=== PATIENT | male | born 1970 | race Caucasian/White ===

== ENCOUNTER 2019-09-01 21:20 | Observation (INO) ==
--- NOTE | 2019-09-01 22:26 | DR.ALLERGY ---
HPI Time Seen Time Seen by Provider: 09/01/19 22:21 PCP Primary Care Physician: JANNIE JUAREZ HPI Comment HPI Comment: Pt. with vomiting, flushing, fast heart rate and elevated BP after eating Complaint/Symptoms Chief Complaint Doctors Comments: Pt. has had multiple episodes over the last three months. Was seen in [place] last night. Chief Complaint:: PATIENT C/O SOB; FEELING LIKE THROAT IS CLOSING UP; FLUSHING AFTER EATING (SEAFOOD?); PATIENT WAS IN ER IN [place], [place] ([facility]) LAST NIGHT AFTER EATING OYSTER STEW WITH C/O HIGH BP, VOMITING, FLUSH. [facility] DAY Source History Provided: Patient Mode of Arrival Mode of Arrival: Ambulatory Timing Onset of Chief Complaint: 08/31/19 PMH PMH Past Medical History: No Past Surgical History: Yes Past Surgical History Comment: HEMORRHOID SURGERY LAST WEEK Family History History of Family Medical Conditions: No Social History Does patient currently use any type of tobacco product: Yes (SMOKELESS) Have you used tobacco products in the last 12 months: Yes Type of Tobacco Use: Smokeless Alcohol Use: None Do you use any recreational Drugs:: No Lives Where: Home infectious screening In the last 2 months have you had wt loss of >10#?: NO Have you had fever, night sweats or hemotysis?: No Have you traveled outside the country in the last 6 months?: No Isolation: Standard PE Vitals Vital Signs: Temp Pulse Resp BP Pulse Ox 09/01/19 21:22 98.5 F 99 H 20 131/83 97 ROR Labs Reviewed Laboratory Results Reviewed?: Yes Result Diagrams: 09/01/19 22:36 09/01/19 22:36 Laboratory: WBC 13.6 X10^3/uL (3.6-10.0) H 09/01/19 22:36 RBC 4.78 X10^6/uL (4.7-6.0) 09/01/19 22:36 Hgb 15.3 g/dL (13.5-18.0) 09/01/19 22:36 Hct 42.6 % (42.0-54.0) 09/01/19 22:36 MCV 89.1 fL (80.0-100.0) 09/01/19 22:36 MCH 32.0 pg (27.0-34.0) 09/01/19 22:36 MCHC 35.9 g/dL (33.0-35.0) H 09/01/19 22:36 RDW 12.8 % (11.6-16.5) 09/01/19 22:36 Plt Count 320 X10^3/uL (150.0-450.0) 09/01/19 22:36 MPV 7.6 fL (7.4-11.0) 09/01/19 22:36 Neut % (Auto) 78.6 % (42.0-75.0) H 09/01/19 22:36 Lymph % (Auto) 11.7 % (21.0-51.0) L 09/01/19 22:36 Door % (Auto) 9.1 % (0.0-13.0) 09/01/19 22:36 Eos % (Auto) 0.3 % (0.9-2.9) L 09/01/19 22:36 Baso % (Auto) 0.3 % (0.2-1.0) 09/01/19 22:36 Neut # (Auto) 10.7 x10^3/uL (2.2-4.8) H 09/01/19 22:36 Lymph # (Auto) 1.6 X10^3/uL (1.3-2.9) 09/01/19 22:36 Door # (Auto) 1.2 x10^3/uL (0.3-0.8) H 09/01/19 22:36 Eos # (Auto) 0.0 x10^3/uL (0.0-0.2) 09/01/19 22:36 Baso # (Auto) 0.0 X10^3/uL (0.0-0.1) 09/01/19 22:36 Absolute Nucleated RBC 0.1 /100WBC 09/01/19 22:36 Sodium 139 mmol/L (136-145) 09/01/19 22:36 Corrected Sodium 140 mmol/L (136-145) 09/01/19 22:36 Potassium 3.5 mmol/L (3.5-5.1) 09/01/19 22:36 Chloride 101 mmol/L (98-107) 09/01/19 22:36 Carbon Dioxide 29.3 mmol/L (21-32) 09/01/19 22:36 BUN 16 mg/dL (7-18) 09/01/19 22:36 Creatinine 1.12 mg/dL (0.70-1.30) 09/01/19 22:36 Est GFR (MDRD) Af Amer > 60 (>60) 09/01/19 22:36 Est GFR (MDRD) Non-Af > 60 (>60) 09/01/19 22:36 Glucose 125 mg/dL (65-99) H 09/01/19 22:36 Calcium 8.7 mg/dL (8.5-10.1) 09/01/19 22:36 Corrected Calcium TNP 09/01/19 22:36 Total Bilirubin 1.80 mg/dL (0.2-1.0) H 09/01/19 22:36 AST 17 Units/L (15-37) 09/01/19 22:36 ALT 40 Units/L (12-78) 09/01/19 22:36 Alkaline Phosphatase 64 Units/L (46-116) 09/01/19 22:36 Total Protein 7.3 g/dL (6.4-8.2) 09/01/19 22:36 Albumin 3.7 g/dL (3.4-5.0) 09/01/19 22:36 Globulin 3.6 g/dL (2.5-4.5) 09/01/19 22:36 Albumin/Globulin Ratio 1.0 Ratio (1.1-2.1) L 09/01/19 22:36 Lipase 70 Units/L (73-393) L 09/01/19 22:36 Specimen Type Clean catch urine 09/02/19 01:13 Urine Color Yellow (YELLOW) 09/02/19 01:13 Urine Appearance Clear (CLEAR) 09/02/19 01:13 Urine pH 6.0 (5.0 - 8.0) 09/02/19 01:13 Ur Specific [place] 1.015 (1.000-1.030) 09/02/19 01:13 Urine Protein 1+ (NEGATIVE) 09/02/19 01:13 Urine Glucose (UA) 1+ (NEGATIVE) 09/02/19 01:13 Urine Ketones Negative (NEGATIVE) 09/02/19 01:13 Urine Occult Blood 2+ (NEGATIVE) 09/02/19 01:13 Urine Nitrite Negative (NEGATIVE) 09/02/19 01:13 Urine Bilirubin Negative (NEGATIVE) 09/02/19 01:13 Urine Urobilinogen Normal (NORMAL) 09/02/19 01:13 Ur Leukocyte Esterase Negative (NEGATIVE) 09/02/19 01:13 Urine RBC 0-2 /HPF (0-3) 09/02/19 01:13 Urine WBC None seen /HPF (0-5) 09/02/19 01:13 Ur Squamous Epith Cells Negative /HPF (NEGATIVE) 09/02/19 01:13 Urine Bacteria Negative /HPF (NEGATIVE) 09/02/19 01:13 Urine Sperm Rare /HPF (NEGATIVE) 09/02/19 01:13 Ur Culture Indicated? No/not indicated 09/02/19 01:13 Other Results Comments: HISTORY C/O SOB, HIGH BP, VOMITING, FLUSH STUDY ABDOMEN/PELVIS WITH CON COMPARISON None TECHNIQUE Multiple axial images of the abdomen and pelvis were obtained from the lung bases to the pubic symphysis after the administration of IV contrast. Dose r eduction techniques including Automated Exposure Control (AEC) and adjustment of mA and kV were utilized. FINDINGS Visualized lungs are clear. Tiny probable hepatic cyst near the dome. Liver is otherwise unremarkable. Gallbladder, pancreas, spleen, and adrenals are unremarkable. Kidneys enhance symmetrically. Bilateral renal cysts noted. No ureteral calculus or hydronephrosis. Urinary bladder is partially decompressed, though grossly unremarkable. Stomach and small bowel normal in caliber. There is a small to moderate amount of retained stool throughout the colon. No colonic wall thickening or pericolic inflammatory stranding. Appendix is not discretely seen, though no secondary signs of appendicitis are detected. No free fluid or adenopathy. Abdominal aorta is normal in caliber. No acute osseous findings. IMPRESSION No acute process of the abdomen or pelvis. Electronically signed by: Jozef Shaw (Sep 02, 2019 02:40:00) HISTORY C/O SOB, HIGH BP, VOMITING, FLUSH STUDY CHEST W/O CON COMPARISON None available TECHNIQUE Multiple axial images of the chest were obtained from the thoracic inlet to the upper abdomen without the administration of IV contrast. Dose reduction techniques including Automated Exposure Control (AEC) and adjustment of mA and kV were utilized. FINDINGS Lungs are clear. No pleural effusion or pneumothorax. Thoracic aorta is normal in caliber. Heart is not enlarged. No pericardial effusion. Abdomen detailed separately. No acute osseous findings. IMPRESSION Unremarkable CT of the chest. Electronically signed by: Jozef Shaw (Sep 02, 2019 02:35:38) tele monitor with NSR through out the ED stay Opioid Opioid Risk Tool Total: 0 Total Score Risk Category: Low Risk Copyright: [facility] predicting aberrant behaviors Diagnosis Discharge Problem: Facial flushing, Palpitations with regular cardiac rhythm Vomiting Qualifiers: Vomiting type: unspecified Vomiting Intractability: intractable Nausea pre sence: with nausea Qualified Code(s): R11.2 - Nausea with vomiting, unspecified Hypertension Qualifiers: Hypertension type: unspecified Qualified Code(s): I10 - Essential (primary) hy pertension ADDITIONAL NOTES Additional Notes Additional Notes: Patient requesting admission Will reach out to Dr. Harris with request. Dr. Jones accepted
[2019-09-01] MEDS ORDERED: ATIVAN INJ 2 MG VIAL IVP ONE (22:27)
[2019-09-01] MEDS ORDERED: PEPCID 20 MG IV PREMIX* 20 MG/50 ML BAG IV ONE (22:33)
[2019-09-01] MEDS ORDERED: NS 100 ML IV 100 ML IV ONE (22:33)
[2019-09-01] MEDS: PEPCID 20 MG IV PREMIX* 20 MG/50 ML BAG IV PRN (22:49)
[2019-09-01 22:54] LABS: ALANINE AMINOTRANSFERASE 40 Units/L (12-78); ALBUMIN 3.7 g/dL (3.4-5.0); ALKALINE PHOSPHATASE 64 Units/L (46-116); ASPARTATE AMINO TRANSFERASE 17 Units/L (15-37); BLOOD UREA NITROGEN 16 mg/dL (7-18); CALCIUM 8.7 mg/dL (8.5-10.1); CARBON DIOXIDE 29.3 mmol/L (21-32); CHLORIDE 101 mmol/L (98-107); COR NA(FOR HYPERGLY) 140 mmol/L (136-145); CREATININE 1.12 mg/dL (0.70-1.30); LIPASE 70 Units/L (73-393); SODIUM 139 mmol/L (136-145); TOTAL PROTEIN 7.3 g/dL (6.4-8.2); eGFR NON BLACK RACES > 60 (>60)
[2019-09-01 22:56] LABS: BASOPHILS % (AUTO) 0.3 % (0.2-1.0); EOSINOPHILS % (AUTO) 0.3 % (0.9-2.9); HEMATOCRIT 42.6 % (42.0-54.0); HEMOGLOBIN 15.3 g/dL (13.5-18.0); LYMPHOCYTES # (AUTO) 1.6 X10^3/uL (1.3-2.9); LYMPHOCYTES % (AUTO) 11.7 % (21.0-51.0); MEAN CORPUSCULAR HGB CONC 35.9 g/dL (33.0-35.0); MEAN CORPUSCULAR VOLUME 89.1 fL (80.0-100.0); MEAN PLATELET VOLUME 7.6 fL (7.4-11.0); MONOCYTES # (AUTO) 1.2 x10^3/uL (0.3-0.8); MONOCYTES % (AUTO) 9.1 % (0.0-13.0); NEUTROPHILS # (AUTO) 10.7 x10^3/uL (2.2-4.8); NEUTROPHILS % (AUTO) 78.6 % (42.0-75.0); PLATELET COUNT 320 X10^3/uL (150.0-450.0); RED BLOOD COUNT 4.78 X10^6/uL (4.7-6.0); RED CELL DISTRIBUTION WIDTH 12.8 % (11.6-16.5); WHITE BLOOD COUNT 13.6 X10^3/uL (3.6-10.0)
[2019-09-02] MEDS ORDERED: ATIVAN INJ 2 MG VIAL IVP ONE (00:19)
[2019-09-02] MEDS ORDERED: ATIVAN INJ 2 MG VIAL ONE (01:05)
[2019-09-02 01:33] LABS: APPEARANCE,URINE CLEAR (CLEAR); BILIRUBIN,URINE NEGATIVE (NEGATIVE); BLOOD/HEMOGLOBIN,URINE 2+ (NEGATIVE); COLOR,URINE YELLOW (YELLOW); GLUCOSE, URINE 1+ (NEGATIVE); KETONES,URINE NEGATIVE (NEGATIVE); LEUKOCYTE ESTERASE ,URINE NEGATIVE (NEGATIVE); NITRITES,URINE NEGATIVE (NEGATIVE); PROTEIN,URINE 1+ (NEGATIVE); UROBILINOGEN,URINE NORMAL (NORMAL)
[2019-09-02 01:47] LABS: BACTERIA,URINE NEGATIVE /HPF (NEGATIVE); RBC,URINE 0-2 /HPF (0-3); SPERM,URINE RARE /HPF (NEGATIVE); SQUAMOUS EPITHELIAL CELL,UR NEGATIVE /HPF (NEGATIVE)
--- NOTE | 2019-09-02 02:36 | CT ---
HISTORYC/O SOB, HIGH BP, VOMITING, FLUSHSTUDYCHEST W/O CONCOMPARISONNone availableTECHNIQUEMultiple axial images of the chest were obtained from the thoracic inlet to the upper abdomen without the administration of IV contrast. Dose reduction techniques including Automated Exposure Control (AEC) and adjustment of mA and kV were utilized.FINDINGSLungs are clear. No pleural effusion or pneumothorax. Thoracic aorta is normal in caliber. Heart is not enlarged. No pericardial effusion. Abdomen detailed separately. No acute osseous findings.IMPRESSIONUnremarkable CT of the chest.Electronically signed by: Jozef Shaw (Sep 02, 2019 02:35:38)
--- NOTE | 2019-09-02 02:41 | CT ---
HISTORYC/O SOB, HIGH BP, VOMITING, FLUSHSTUDYABDOMEN/PELVIS WITH CONCOMPARISONNoneTECHNIQUEMultiple axial images of the abdomen and pelvis were obtained from the lung bases to the pubic symphysis after the administration of IV contrast. Dose reduction techniques including Automated Exposure Control (AEC) and adjustment of mA and kV were utilized.FINDINGSVisualized lungs are clear. Tiny probable hepatic cyst near the dome. Liver is otherwise unremarkable. Gallbladder, pancreas, spleen, and adrenals are unremarkable. Kidneys enhance symmetrically. Bilateral renal cysts noted. No ureteral calculus or hydronephrosis. Urinary bladder is partially decompressed, though grossly unremarkable. Stomach and small bowel normal in caliber. There is a small to moderate amount of retained stool throughout the colon. No colonic wall thickening or pericolic inflammatory stranding. Appendix is not discretely seen, though no secondary signs of appendicitis are detected. No free fluid or adenopathy. Abdominal aorta is normal in caliber. No acute osseous findings.IMPRESSIONNo acute process of the abdomen or pelvis.Electronically signed by: Jozef Shaw (Sep 02, 2019 02:40:00)
[2019-09-02 04:22] VITALS: BMI 24.5
[2019-09-02] MEDS: PROTONIX INJ 40 MG VIAL IVP SCH ×2 (11:07→20:35)
--- NOTE | 2019-09-02 11:07 | DR.H&P ---
H&P - History & Physical for Day of: H&P Date: 09/02/19 - Chief Complaint Chief Complaint: SHORTNESS OF BREATH, FLUSHING, DIAPHORESIS, VOMITING, PALPITATIONS, AND HIGH BLOOD PRESSURE - History of Present Illness History of Present Illness: IS A 48 YEAR OLD PATIENT OF [facility] WHO PRESENTED TO THE ER WITH COMPLAINTS OF SHORTNESS OF BREATH, NAUSEA, ABDOMINIAL PAIN, HIGH BLOOD PRESSURE, AND A FLUSHED SENSATION. HE REPORTS MARILIA RAL EPISOES OVER THE PAST THREE MONTHS AND HAD ANOTHER EPISODE TODAY. HE REPORTS THAT SYMPTOMS ARE WORSE AFTER EATING. HE HAD A HEMORRHOIDECTOMY LAST WEEK. ON ARRIVAL, VITALS WERE 98.5-99-20-97%-131/83. LABS WERE OBTAINED. ABNORMAL LAB VALUES INCLUDE THE FOLLOWING: WBC 13.6, GLUCOSE 125, TOTAL BILI 1.80, LIPASE 70. URINALYSIS IS UNREMARKABLE. ABDOMEN/PELVIS CT REVEALED: No acute process of the abdomen or pelvis. CHEST CT REVEALED: No acute process of the abdomen or pelvis. WE CONSULTED WITH TODAY. HE PLANS TO TAKE PATIENT TO THE OR FOR AN EGD AND OBTAIN A GALLBADDER ULTRASOUND. WE ARE IN AGREEMENT WITH PLAN. WE DISCUSSED PLAN WITH PATIENT. TIME SPENT WITH PHYSICIAN AND PATIENT WAS AT LEAST 16 MINUTES. HE WAS STARTED ON IV PEPCID, IV PROTONIX, D51/2NS AT 150ML/HR, GI COCKTAIL, AND PERCOCET 5/325MG PO Q4H PRN. OTHERWISE, WE PLAN TO FOLLOW UP WITH AM LABS AND CONTINUE TO MONITOR. - Past Surgical History Surgical History: Appendectomy - Family History Family Medical History: Diabetes Mellitus, Hypertension - Social History Does patient currently use any type of tobacco product: Yes Have you used tobacco products in the last 12 months: Yes Type of Tobacco Use: Smokeless Alcohol Use: None Drug Use: None - Medications Home Medications: No Known Drug Allergies Allergy (Verified 09/01/19 22:24) CONTINUE taking the following medications docusate sodium [Colace] 100 mg PO DAILY 09/02/19 [History] hydrocortisone [Proctozone-HC] 1 applic [place] BID 09/02/19 [History] oxycodone-acetaminophen 1 tab PO Q6H PRN 09/02/19 [History] - Review of Systems Constitutional: No Symptoms Reported Eyes: No Symptoms Reported ENT: No Symptoms Reported Respiratory: Shortness of Breath Cardiovascular: Palpitations, Light Headedness Gastrointestinal: Nausea, Vomiting, Abdominal Pain Genitourinary: No Symptoms Reported Musculoskeletal: No Symptoms Reported Skin: No Symptoms Reported Neurological: No Symptoms Reported - Physical Exam Vital Signs: Temperature 97.9 F Pulse Rate [Right Brachial] 74 Pulse Rate [Left Brachial] 81 Pulse Rate 99 Respiratory Rate 20 Blood Pressure [Right Arm] 101/63 Blood Pressure [Left Arm] 148/78 Blood Pressure 131/83 O2 Sat by Pulse Oximetry 98 Oriented: Normal Eyes: Normal Ear: Normal Nose: Normal Throat: Normal Respiratory: Diminished Throughout Cardiovascular: Normal. negative: S3, S4, Murmur : Normal Auscultation: Bowel Sounds: Normal Palpation: Normal Tenderness: Diffuse, Moderate Skin: Normal Musculoskeletal: Normal Psychiatric: Normal Mood Description: Calm Affect: Normal Speech Pattern: Clear - Assessment/Plan (1) Abdominal pain Qualifiers: Abdominal location: generalized Qualified Code(s): R10.84 - Generalized abdominal pain Status: Acute Plan: ADMIT, IV FLUIDS, IV PEPCID, IV PROTONIX, GI COCKTAIL, NORCO PRN, OBTAIN GALLBLADDER US AND HIDA IN AM, SURGICAL CONSULT, EGD TODAY, CONTINUE TO MONITOR (2) Nausea & vomiting Qualifiers: Vomiting type: unspecified Vomiting Intractability: non-intractable Qualified Code(s): R11.2 - Nausea with vomiting, unspecified Status: Acute (3) Facial flushing Status: Acute (4) Hypertension Qualifiers: Hypertension type: unspecified Qualified Code(s): I10 - Essential (primary) hypertension Status: Acute (5) Palpitations with regular cardiac rhythm Status: Acute - Allergies Allergies/Adverse Reactions: Allergies Allergy/AdvReac Type Severity Reaction Status Date / Time No Known Drug Allergies Allergy Verified 09/01/19 22:24
[2019-09-02] MEDS: LEVSIN/MAALOX/LIDOC VISC PO SCH ×4 (11:11→20:35)
[2019-09-02] MEDS ORDERED: DIPRIVAN VIAL 20 ML ONE (12:20)
[2019-09-02] MEDS ORDERED: NS 1000 ML 1,000 ML ONE (12:22)
--- NOTE | 2019-09-02 13:16 | US ---
HISTORYRUQ PAIN,N/V ACUTE ONSETSTUDYGALL BLADDER ultrasoundCOMPARISONCT from same dayTECHNIQUEMultiple monroe scale and color flow Doppler images of the right upper quadrant of the abdomen were obtained with image documentation.FINDINGSNo hepatic abnormality is seen. Hepatopetal portal flow is seen on Doppler ultrasound.Sludge is seen in the gallbladder without wall thickening or stones. No biliary ductal dilation.Pancreas is obscured due to bowel gas.Simple cyst in the lower pole of the right kidney measures 2 cm x 2.3 cm. Right kidney measures 11 cm in length.IMPRESSIONMild sludge is seen in the gallbladder without evidence of cholelithiasis or cholecystitis.Electronically signed by: Kelvin Santiago (Sep 02, 2019 13:14:59)
[2019-09-02] MEDS ORDERED: D5 1/2 NS 1000 ML 1,000 ML IV ONE (14:05)
[2019-09-02] MEDS: D5 1/2 NS 1000 ML 1,000 ML IV SCH ×2 (14:16→22:01)
[2019-09-02] MEDS: PERCOCET TAB 5/325 MG PO PRN ×2 (14:39→19:33)
[2019-09-02] MEDS: EMLA CREAM TOP SCH ×2 (14:40→20:34)
[2019-09-02] MEDS: TUCKS MEDICATED PAD TOP SCH ×3 (14:41→20:34)
[2019-09-02] MEDS: COLACE CAP 100 MG PO SCH (20:35)
[2019-09-02] MEDS: PEPCID 20 MG IV PREMIX* 20 MG/50 ML BAG IV PRN (20:36)
[2019-09-03] MEDS: D5 1/2 NS 1000 ML 1,000 ML IV SCH ×5 (04:01→23:07)
[2019-09-03] MEDS: TUCKS MEDICATED PAD TOP SCH ×5 (05:17→21:38)
[2019-09-03 07:20] LABS: ALANINE AMINOTRANSFERASE 34 Units/L (12-78); ALBUMIN 3.2 g/dL (3.4-5.0); ALKALINE PHOSPHATASE 56 Units/L (46-116); ASPARTATE AMINO TRANSFERASE 16 Units/L (15-37); BLOOD UREA NITROGEN 15 mg/dL (7-18); CALCIUM 8.1 mg/dL (8.5-10.1); CARBON DIOXIDE 31.6 mmol/L (21-32); CHLORIDE 103 mmol/L (98-107); COR CA(FOR HYPOALB) 8.7 mg/dL (8.5-10.1); COR NA(FOR HYPERGLY) 139 mmol/L (136-145); CREATININE 1.07 mg/dL (0.70-1.30); SODIUM 139 mmol/L (136-145); TOTAL PROTEIN 6.3 g/dL (6.4-8.2); eGFR NON BLACK RACES > 60 (>60)
[2019-09-03 07:23] LABS: BASOPHILS % (AUTO) 0.7 % (0.2-1.0); EOSINOPHILS # (AUTO) 0.1 x10^3/uL (0.0-0.2); EOSINOPHILS % (AUTO) 1.1 % (0.9-2.9); HEMATOCRIT 40.1 % (42.0-54.0); HEMOGLOBIN 14.3 g/dL (13.5-18.0); LYMPHOCYTES # (AUTO) 1.5 X10^3/uL (1.3-2.9); LYMPHOCYTES % (AUTO) 25.8 % (21.0-51.0); MEAN CORPUSCULAR HEMOGLOBIN 31.9 pg (27.0-34.0); MEAN CORPUSCULAR HGB CONC 35.6 g/dL (33.0-35.0); MEAN CORPUSCULAR VOLUME 89.6 fL (80.0-100.0); MEAN PLATELET VOLUME 7.2 fL (7.4-11.0); MONOCYTES # (AUTO) 0.6 x10^3/uL (0.3-0.8); MONOCYTES % (AUTO) 9.8 % (0.0-13.0); NEUTROPHILS # (AUTO) 3.7 x10^3/uL (2.2-4.8); NEUTROPHILS % (AUTO) 62.6 % (42.0-75.0); PLATELET COUNT 254 X10^3/uL (150.0-450.0); RED BLOOD COUNT 4.48 X10^6/uL (4.7-6.0); RED CELL DISTRIBUTION WIDTH 12.7 % (11.6-16.5); WHITE BLOOD COUNT 5.9 X10^3/uL (3.6-10.0)
[2019-09-03] MEDS: EMLA CREAM TOP SCH ×2 (09:33→21:38)
[2019-09-03] MEDS: LEVSIN/MAALOX/LIDOC VISC PO SCH ×5 (09:34→21:26)
[2019-09-03] MEDS: PROTONIX INJ 40 MG VIAL IVP SCH ×2 (09:34→21:28)
[2019-09-03 09:44] LABS: CKMB % 2.1 % (<4); CREATINE KINASE MB < 1.0 ng/mL (0-4.0); TROPONIN I < 0.02 ng/mL (0-1.5)
[2019-09-03 10:06] LABS: CREATINE KINASE 47 Units/L (39-308)
[2019-09-03] MEDS: ZOFRAN INJ 4 MG VIAL IVP PRN ×2 (13:10→19:44)
--- NOTE | 2019-09-03 13:37 | NM ---
HISTORYRUQ PAIN, NAUSEASTUDYHIDA/HEPATOBILIARY SCAN W/EF 5.4 millicuries Choletec is injected with imaging of the right upper quadrant for 60 minutes. Patient drank 8 ounces of Ensure with gallbladder ejection fraction calculated.COMPARISONUltrasound 09/02/2019FINDINGSThere is homogeneous distribution of radiotracer in the liver. There is prompt visualization of the gallbladder and prompt excretion into the small bowel.Ejection fraction of 16 percent is measured. This is low.IMPRESSIONNo evidence of acute cholecystitis but there is gallbladder dyskinesia which could be from chronic cholecystitis.Electronically signed by: Kelvin Santiago (Sep 03, 2019 13:36:25)
[2019-09-03] MEDS: PERCOCET TAB 5/325 MG PO PRN (14:17)
[2019-09-03 16:07] LABS: CKMB % 3.1 % (<4); CREATINE KINASE 32 Units/L (39-308); CREATINE KINASE MB < 1.0 ng/mL (0-4.0); TROPONIN I < 0.02 ng/mL (0-1.5)
[2019-09-03] MEDS ORDERED: ATIVAN INJ 2 MG VIAL IVP ONE (20:26)
[2019-09-03] MEDS ORDERED: ATIVAN INJ 2 MG VIAL ONE (20:28)
[2019-09-03] MEDS: COLACE CAP 100 MG PO SCH (21:26)
[2019-09-03 21:48] LABS: CKMB % 3.2 % (<4); CREATINE KINASE 31 Units/L (39-308); CREATINE KINASE MB < 1.0 ng/mL (0-4.0); TROPONIN I < 0.02 ng/mL (0-1.5)
[2019-09-04] MEDS: D5 1/2 NS 1000 ML 1,000 ML IV SCH ×5 (02:05→23:14)
[2019-09-04] MEDS: TUCKS MEDICATED PAD TOP SCH ×5 (05:48→21:28)
[2019-09-04 05:51] LABS: BASOPHILS % (AUTO) 0.7 % (0.2-1.0); EOSINOPHILS # (AUTO) 0.1 x10^3/uL (0.0-0.2); EOSINOPHILS % (AUTO) 1.2 % (0.9-2.9); HEMATOCRIT 39.3 % (42.0-54.0); HEMOGLOBIN 14.1 g/dL (13.5-18.0); LYMPHOCYTES # (AUTO) 1.5 X10^3/uL (1.3-2.9); LYMPHOCYTES % (AUTO) 24.4 % (21.0-51.0); MEAN CORPUSCULAR HEMOGLOBIN 32.3 pg (27.0-34.0); MEAN CORPUSCULAR HGB CONC 35.7 g/dL (33.0-35.0); MEAN CORPUSCULAR VOLUME 90.3 fL (80.0-100.0); MEAN PLATELET VOLUME 7.5 fL (7.4-11.0); MONOCYTES # (AUTO) 0.7 x10^3/uL (0.3-0.8); MONOCYTES % (AUTO) 10.8 % (0.0-13.0); NEUTROPHILS # (AUTO) 3.9 x10^3/uL (2.2-4.8); NEUTROPHILS % (AUTO) 62.9 % (42.0-75.0); PLATELET COUNT 261 X10^3/uL (150.0-450.0); RED BLOOD COUNT 4.36 X10^6/uL (4.7-6.0); RED CELL DISTRIBUTION WIDTH 12.7 % (11.6-16.5); WHITE BLOOD COUNT 6.1 X10^3/uL (3.6-10.0)
[2019-09-04 06:16] LABS: ALANINE AMINOTRANSFERASE 31 Units/L (12-78); ALBUMIN 3.1 g/dL (3.4-5.0); ALKALINE PHOSPHATASE 60 Units/L (46-116); ASPARTATE AMINO TRANSFERASE 14 Units/L (15-37); BLOOD UREA NITROGEN 11 mg/dL (7-18); CARBON DIOXIDE 30.4 mmol/L (21-32); CHLORIDE 104 mmol/L (98-107); COR CA(FOR HYPOALB) 8.7 mg/dL (8.5-10.1); COR NA(FOR HYPERGLY) 137 mmol/L (136-145); CREATININE 1.03 mg/dL (0.70-1.30); SODIUM 137 mmol/L (136-145); TOTAL PROTEIN 6.2 g/dL (6.4-8.2); eGFR NON BLACK RACES > 60 (>60)
[2019-09-04] MEDS: LEVSIN/MAALOX/LIDOC VISC PO SCH ×4 (08:52→21:28)
[2019-09-04] MEDS: PROTONIX INJ 40 MG VIAL IVP SCH ×2 (08:56→21:27)
[2019-09-04] MEDS: EMLA CREAM TOP SCH ×2 (08:56→21:27)
[2019-09-04] MEDS ORDERED: LEXAPRO ONE (10:12)
[2019-09-04] MEDS: LEXAPRO PO SCH (10:36)
[2019-09-04] MEDS ORDERED: ATIVAN INJ 2 MG VIAL IVP ONE (13:37)
[2019-09-04] MEDS ORDERED: ATIVAN INJ 2 MG VIAL ONE (13:40)
[2019-09-04] MEDS: VISTARIL PO PRN ×2 (13:56→21:27)
[2019-09-04] MEDS: COLACE CAP 100 MG PO SCH (21:27)
[2019-09-05] MEDS: TUCKS MEDICATED PAD TOP SCH ×5 (05:08→22:34)
[2019-09-05] MEDS: D5 1/2 NS 1000 ML 1,000 ML IV SCH ×5 (05:44→18:13)
[2019-09-05 06:13] LABS: BASOPHILS % (AUTO) 0.9 % (0.2-1.0); EOSINOPHILS # (AUTO) 0.1 x10^3/uL (0.0-0.2); EOSINOPHILS % (AUTO) 1.7 % (0.9-2.9); HEMATOCRIT 41.2 % (42.0-54.0); HEMOGLOBIN 14.8 g/dL (13.5-18.0); LYMPHOCYTES # (AUTO) 1.4 X10^3/uL (1.3-2.9); LYMPHOCYTES % (AUTO) 25.4 % (21.0-51.0); MEAN CORPUSCULAR HEMOGLOBIN 32.2 pg (27.0-34.0); MEAN CORPUSCULAR HGB CONC 35.9 g/dL (33.0-35.0); MEAN CORPUSCULAR VOLUME 89.8 fL (80.0-100.0); MEAN PLATELET VOLUME 7.4 fL (7.4-11.0); MONOCYTES # (AUTO) 0.5 x10^3/uL (0.3-0.8); MONOCYTES % (AUTO) 8.6 % (0.0-13.0); NEUTROPHILS # (AUTO) 3.5 x10^3/uL (2.2-4.8); NEUTROPHILS % (AUTO) 63.4 % (42.0-75.0); PLATELET COUNT 265 X10^3/uL (150.0-450.0); RED BLOOD COUNT 4.59 X10^6/uL (4.7-6.0); RED CELL DISTRIBUTION WIDTH 12.6 % (11.6-16.5); WHITE BLOOD COUNT 5.4 X10^3/uL (3.6-10.0)
[2019-09-05 06:30] LABS: ALANINE AMINOTRANSFERASE 34 Units/L (12-78); ALBUMIN 3.2 g/dL (3.4-5.0); ALKALINE PHOSPHATASE 58 Units/L (46-116); ASPARTATE AMINO TRANSFERASE 15 Units/L (15-37); BLOOD UREA NITROGEN 9 mg/dL (7-18); CALCIUM 8.3 mg/dL (8.5-10.1); CARBON DIOXIDE 31.2 mmol/L (21-32); CHLORIDE 105 mmol/L (98-107); COR CA(FOR HYPOALB) 8.9 mg/dL (8.5-10.1); CREATININE 1.11 mg/dL (0.70-1.30); SODIUM 139 mmol/L (136-145); TOTAL PROTEIN 6.5 g/dL (6.4-8.2); eGFR NON BLACK RACES > 60 (>60)
[2019-09-05] MEDS ORDERED: LEXAPRO ONE (07:35)
[2019-09-05] MEDS: LEVSIN/MAALOX/LIDOC VISC PO SCH ×4 (08:15→21:18)
[2019-09-05] MEDS: LEXAPRO PO SCH (08:15)
[2019-09-05] MEDS: PROTONIX INJ 40 MG VIAL IVP SCH ×2 (08:16→21:18)
[2019-09-05] MEDS: EMLA CREAM TOP SCH ×2 (09:16→22:34)
--- NOTE | 2019-09-05 13:16 | PCM.PROG ---
Progress Note Progress Note for Day of Date of Exam: 09/05/19 Subjective Subjective: Patient seen at bedside. He continues to have intermittent nausea and vomiting. He has not been able to eat much, reports last meal was yesterday afternoon. He has been drinking some Gatorade this morning, no vomiting. He had an EGD on Fri which showed ulcers with esophagitis. HIDA showed chronic cholecystitis. Dr. Taylor has been seeing the patient and there's a tentative plan for cholecystectomy tomorrow. Patient denies abdominal pain. Past Medical Family Social History Past Med/Fam/Surg Hx: No changes since H&P Allergies: Allergies No Known Drug Allergies Allergy (Verified 09/01/19 22:24) Review of Systems ROS: No change since H&P Vital Signs and I&O's Vital Signs: Temperature 97.6 F Pulse Rate [Right Brachial] 73 Pulse Rate [Left Brachial] 68 Pulse Rate 99 Respiratory Rate 18 Blood Pressure [Right Arm] 128/67 Blood Pressure [Left Arm] 131/76 Blood Pressure 131/83 O2 Sat by Pulse Oximetry 98 Intake and Output: Intake & Output 09/02/19 09/03/19 09/04/19 09/05/19 23:59 23:59 23:59 23:59 Intake Total 1520 / 1520 3214 / 3214 3323 / 3323 1259 / 1259 Balance 1520 / 1520 3214 / 3214 3323 / 3323 1259 / 1259 Physical Exam Oriented: Normal Eyes: Normal Ear: Normal Nose: Normal Throat: Normal Cardiovascular: Normal; negative S3, S4 and Murmur Auscultation: Bowel Sounds: Decreased Tenderness: Normal Skin: Normal Musculoskeletal: Normal Psychiatric: Normal Mood Description: Calm Affect: Normal Speech Pattern: Clear and Appropriate Laboratory and Diagnostics Result Diagrams: 09/05/19 05:25 09/05/19 05:25 Labs: Laboratory WBC 5.4 X10^3/uL (3.6-10.0) 09/05/19 05:25 RBC 4.59 X10^6/uL (4.7-6.0) L 09/05/19 05:25 Hgb 14.8 g/dL (13.5-18.0) 09/05/19 05:25 Hct 41.2 % (42.0-54.0) L 09/05/19 05:25 MCV 89.8 fL (80.0-100.0) 09/05/19 05:25 MCH 32.2 pg (27.0-34.0) 09/05/19 05:25 MCHC 35.9 g/dL (33.0-35.0) H 09/05/19 05:25 RDW 12.6 % (11.6-16.5) 09/05/19 05:25 Plt Count 265 X10^3/uL (150.0-450.0) 09/05/19 05:25 MPV 7.4 fL (7.4-11.0) 09/05/19 05:25 Neut % (Auto) 63.4 % (42.0-75.0) 09/05/19 05:25 Lymph % (Auto) 25.4 % (21.0-51.0) 09/05/19 05:25 [place] % (Auto) 8.6 % (0.0-13.0) 09/05/19 05:25 Eos % (Auto) 1.7 % (0.9-2.9) 09/05/19 05:25 Baso % (Auto) 0.9 % (0.2-1.0) 09/05/19 05:25 Neut # (Auto) 3.5 x10^3/uL (2.2-4.8) 09/05/19 05:25 Lymph # (Auto) 1.4 X10^3/uL (1.3-2.9) 09/05/19 05:25 [place] # (Auto) 0.5 x10^3/uL (0.3-0.8) 09/05/19 05:25 Eos # (Auto) 0.1 x10^3/uL (0.0-0.2) 09/05/19 05:25 Baso # (Auto) 0.0 X10^3/uL (0.0-0.1) 09/05/19 05:25 Absolute Nucleated RBC 0.0 /100WBC 09/05/19 05:25 Sodium 139 mmol/L (136-145) 09/05/19 05:25 Corrected Sodium TNP 09/05/19 05:25 Potassium 4.2 mmol/L (3.5-5.1) 09/05/19 05:25 Chloride 105 mmol/L (98-107) 09/05/19 05:25 Carbon Dioxide 31.2 mmol/L (21-32) 09/05/19 05:25 BUN 9 mg/dL (7-18) 09/05/19 05:25 Creatinine 1.11 mg/dL (0.70-1.30) 09/05/19 05:25 Est GFR (MDRD) Af Amer > 60 (>60) 09/05/19 05:25 Est GFR (MDRD) Non-Af > 60 (>60) 09/05/19 05:25 Glucose 102 mg/dL (65-99) H 09/05/19 05:25 POC Glucose (mg/dL) 100 mg/dL (65-99) H 09/03/19 20:01 Calcium 8.3 mg/dL (8.5-10.1) L 09/05/19 05:25 Corrected Calcium 8.9 mg/dL (8.5-10.1) 09/05/19 05:25 Total Bilirubin 2.80 mg/dL (0.2-1.0) H 09/05/19 05:25 AST 15 Units/L (15-37) 09/05/19 05:25 ALT 34 Units/L (12-78) 09/05/19 05:25 Alkaline Phosphatase 58 Units/L (46-116) 09/05/19 05:25 Creatine Kinase 31 Units/L (39-308) L 09/03/19 21:18 CK-MB (CK-2) < 1.0 ng/mL (0-4.0) 09/03/19 21:18 CK/CKMB % Calc 3.2 % (<4) 09/03/19 21:18 Troponin I < 0.02 ng/mL (0-1.5) 09/03/19 21:18 Total Protein 6.5 g/dL (6.4-8.2) 09/05/19 05:25 Albumin 3.2 g/dL (3.4-5.0) L 09/05/19 05:25 Globulin 3.3 g/dL (2.5-4.5) 09/05/19 05:25 Albumin/Globulin Ratio 1.0 Ratio (1.1-2.1) L 09/05/19 05:25 Lipase 70 Units/L (73-393) L 09/01/19 22:36 Specimen Type Clean catch urine 09/02/19 01:13 Urine Color Yellow (YELLOW) 09/02/19 01:13 Urine Appearance Clear (CLEAR) 09/02/19 01:13 Urine pH 6.0 (5.0 - 8.0) 09/02/19 01:13 Ur Specific [place] 1.015 (1.000-1.030) 09/02/19 01:13 Urine Protein 1+ (NEGATIVE) 09/02/19 01:13 Urine Glucose (UA) 1+ (NEGATIVE) 09/02/19 01:13 Urine Ketones Negative (NEGATIVE) 09/02/19 01:13 Urine Occult Blood 2+ (NEGATIVE) 09/02/19 01:13 Urine Nitrite Negative (NEGATIVE) 09/02/19 01:13 Urine Bilirubin Negative (NEGATIVE) 09/02/19 01:13 Urine Urobilinogen Normal (NORMAL) 09/02/19 01:13 Ur Leukocyte Esterase Negative (NEGATIVE) 09/02/19 01:13 Urine RBC 0-2 /HPF (0-3) 09/02/19 01:13 Urine WBC None seen /HPF (0-5) 09/02/19 01:13 Ur Squamous Epith Cells Negative /HPF (NEGATIVE) 09/02/19 01:13 Urine Bacteria Negative /HPF (NEGATIVE) 09/02/19 01:13 Urine Sperm Rare /HPF (NEGATIVE) 09/02/19 01:13 Ur Culture Indicated? No/not indicated 09/02/19 01:13 Influenza Type A (PCR) Negative (NEGATIVE) 09/03/19 20:08 Influenza Type B (PCR) Negative (NEGATIVE) 09/03/19 20:08 Tissue Pathology To follow 09/02/19 12:41 Plan (1) Abdominal pain: Status: Acute Qualifiers: Abdominal location: generalized Qualified Code(s): R10.84 - Generalized abdominal pain Plan: Continue hydration, IV Protonix and Gi cocktail. Dr. Taylor following EGD done recently showed ulcers with esophagitis HIDA concerning for chronic cholecystitis, plan for cholecystectomy possibly tomorrow. (2) Nausea & vomiting: Status: Acute Qualifiers: Vomiting Intractability: non-intractable Vomiting type: unspecified Qualified Code(s): R11.2 - Nausea with vomiting, unspecified (3) Facial flushing: Status: Acute (4) Hypertension: Status: Acute Qualifiers: Hypertension type: unspecified Qualified Code(s): I10 - Essential (primary) hypertension (5) Palpitations with regular cardiac rhythm: Status: Acute
[2019-09-05] MEDS: VISTARIL PO PRN ×2 (13:48→21:19)
[2019-09-05] MEDS: COLACE CAP 100 MG PO SCH (21:19)
--- NOTE | 2019-09-05 22:18 | PCM.PROG ---
Progress Note - Progress Note for Day of Date of Exam: 09/03/19 - Subjective Subjective: WAS ADMITTED TO THE HOSPITAL FOR TREATMENT OF ABDOMINAL PAIN, NAUSEA, VOMITING, AND SHORTNESS OF BREATH. TODAY, HE IS ALERT AND ORIENTED, LYING IN BED ON MORNING ROUNDS. HE CONTINUES WITH COMPLAINTS OF ABDOMINAL PAIN AND NAUSEA. SYMPTOMS ARE WORSE AFTER EATING. ON EXAMINATION, HEART IS REGULAR IN RATE AND RHYTHM. BILATERAL LUNGS ARE NOTED WITH DIMINISHED LUNG SOUNDS THROUGHOUT. ABDOMEN IS ROUND, SOFT, AND NOTED WITH DIFFUSE TENDERNESS. NORMAL BOWEL SOUNDS ARE NOTED. HIS VITALS THIS MORNING ARE: 97.7-74-20-94%-133/62. LABS WERE OBTAINED. ABNORMAL LAB VALUES INCLUDE THE FOLLOWING: RBC 4.48, HCT 40.1, GLUCOSE 114, CALCIUM 8.1, TOTAL BILI 2.30, TOTAL PROTEIN 6.3, ALBUMIN 3.2. A GALLBLADDER ULTRASOUND WAS OBTAINED YESTERDAY AND REVEALED: Mild sludge is seen in the gallbladder without evidence of cholelithiasis or cholecystitis. TODAY, WE WILL OBTAIN A HIDA SCAN. WE WILL CONTINUE HIS CURRENT MEDICATIONS OF D51/2ST AT 150ML/HR, PEPCID 20MG IV BID PRN, PERCOCET 5/325MG PO Q4H PRN, PROTONIX IV, VISTARIL PRN, GI COCKTAIL, AND ZOFRAN PRN. OTHERWISE, WE WILL FOLLOW UP WITH AM LABS AND CONTINUE TO MONITOR. - Past Medical Family Social History Past Med/Fam/Surg Hx: No changes since H&P Allergies: Allergies No Known Drug Allergies Allergy (Verified 09/01/19 22:24) - Review of Systems ROS: No change since H&P - Vital Signs and I&O's Vital Signs: Temperature 98.0 F Pulse Rate [Right Brachial] 79 Pulse Rate [Left Brachial] 68 Pulse Rate 99 Respiratory Rate 20 Blood Pressure [Right Arm] 133/88 Blood Pressure [Left Arm] 131/76 Blood Pressure 131/83 O2 Sat by Pulse Oximetry 97 Intake and Output: Intake & Output 09/03/19 09/04/19 09/05/19 09/06/19 11:59 11:59 11:59 11:59 Intake Total 2692 / 2692 2272 / 2272 4342 / 4342 192 / 1920 Balance 2692 / 2692 2272 / 2272 4342 / 4342 1920 / 1920 - Physical Exam Oriented: Normal Eyes: Normal Ear: Normal Nose: Normal Throat: Normal Cardiovascular: Normal. negative: S3, S4, Murmur : Normal Auscultation: Bowel Sounds: Decreased Palpation: Normal Tenderness: Normal Skin: Normal Musculoskeletal: Normal Psychiatric: Normal Mood Description: Calm Affect: Normal Speech Pattern: Clear, Appropriate - Laboratory and Diagnostics Result Diagrams: 09/05/19 05:25 09/05/19 05:25 Labs: Laboratory WBC 5.4 X10^3/uL (3.6-10.0) 09/05/19 05:25 RBC 4.59 X10^6/uL (4.7-6.0) L 09/05/19 05:25 Hgb 14.8 g/dL (13.5-18.0) 09/05/19 05:25 Hct 41.2 % (42.0-54.0) L 09/05/19 05:25 MCV 89.8 fL (80.0-100.0) 09/05/19 05:25 MCH 32.2 pg (27.0-34.0) 09/05/19 05:25 MCHC 35.9 g/dL (33.0-35.0) H 09/05/19 05:25 RDW 12.6 % (11.6-16.5) 09/05/19 05:25 Plt Count 265 X10^3/uL (150.0-450.0) 09/05/19 05:25 MPV 7.4 fL (7.4-11.0) 09/05/19 05:25 Neut % (Auto) 63.4 % (42.0-75.0) 09/05/19 05:25 Lymph % (Auto) 25.4 % (21.0-51.0) 09/05/19 05:25 [place] % (Auto) 8.6 % (0.0-13.0) 09/05/19 05:25 Eos % (Auto) 1.7 % (0.9-2.9) 09/05/19 05:25 Baso % (Auto) 0.9 % (0.2-1.0) 09/05/19 05:25 Neut # (Auto) 3.5 x10^3/uL (2.2-4.8) 09/05/19 05:25 Lymph # (Auto) 1.4 X10^3/uL (1.3-2.9) 09/05/19 05:25 [place] # (Auto) 0.5 x10^3/uL (0.3-0.8) 09/05/19 05:25 Eos # (Auto) 0.1 x10^3/uL (0.0-0.2) 09/05/19 05:25 Baso # (Auto) 0.0 X10^3/uL (0.0-0.1) 09/05/19 05:25 Absolute Nucleated RBC 0.0 /100WBC 09/05/19 05:25 Sodium 139 mmol/L (136-145) 09/05/19 05:25 Corrected Sodium TNP 09/05/19 05:25 Potassium 4.2 mmol/L (3.5-5.1) 09/05/19 05:25 Chloride 105 mmol/L (98-107) 09/05/19 05:25 Carbon Dioxide 31.2 mmol/L (21-32) 09/05/19 05:25 BUN 9 mg/dL (7-18) 09/05/19 05:25 Creatinine 1.11 mg/dL (0.70-1.30) 09/05/19 05:25 Est GFR (MDRD) Af Amer > 60 (>60) 09/05/19 05:25 Est GFR (MDRD) Non-Af > 60 (>60) 09/05/19 05:25 Glucose 102 mg/dL (65-99) H 09/05/19 05:25 POC Glucose (mg/dL) 100 mg/dL (65-99) H 09/03/19 20:01 Calcium 8.3 mg/dL (8.5-10.1) L 09/05/19 05:25 Corrected Calcium 8.9 mg/dL (8.5-10.1) 09/05/19 05:25 Total Bilirubin 2.80 mg/dL (0.2-1.0) H 09/05/19 05:25 AST 15 Units/L (15-37) 09/05/19 05:25 ALT 34 Units/L (12-78) 09/05/19 05:25 Alkaline Phosphatase 58 Units/L (46-116) 09/05/19 05:25 Creatine Kinase 31 Units/L (39-308) L 09/03/19 21:18 CK-MB (CK-2) < 1.0 ng/mL (0-4.0) 09/03/19 21:18 CK/CKMB % Calc 3.2 % (<4) 09/03/19 21:18 Troponin I < 0.02 ng/mL (0-1.5) 09/03/19 21:18 Total Protein 6.5 g/dL (6.4-8.2) 09/05/19 05:25 Albumin 3.2 g/dL (3.4-5.0) L 09/05/19 05:25 Globulin 3.3 g/dL (2.5-4.5) 09/05/19 05:25 Albumin/Globulin Ratio 1.0 Ratio (1.1-2.1) L 09/05/19 05:25 Lipase 70 Units/L (73-393) L 09/01/19 22:36 Specimen Type Clean catch urine 09/02/19 01:13 Urine Color Yellow (YELLOW) 09/02/19 01:13 Urine Appearance Clear (CLEAR) 09/02/19 01:13 Urine pH 6.0 (5.0 - 8.0) 09/02/19 01:13 Ur Specific [place] 1.015 (1.000-1.030) 09/02/19 01:13 Urine Protein 1+ (NEGATIVE) 09/02/19 01:13 Urine Glucose (UA) 1+ (NEGATIVE) 09/02/19 01:13 Urine Ketones Negative (NEGATIVE) 09/02/19 01:13 Urine Occult Blood 2+ (NEGATIVE) 09/02/19 01:13 Urine Nitrite Negative (NEGATIVE) 09/02/19 01:13 Urine Bilirubin Negative (NEGATIVE) 09/02/19 01:13 Urine Urobilinogen Normal (NORMAL) 09/02/19 01:13 Ur Leukocyte Esterase Negative (NEGATIVE) 09/02/19 01:13 Urine RBC 0-2 /HPF (0-3) 09/02/19 01:13 Urine WBC None seen /HPF (0-5) 09/02/19 01:13 Ur Squamous Epith Cells Negative /HPF (NEGATIVE) 09/02/19 01:13 Urine Bacteria Negative /HPF (NEGATIVE) 09/02/19 01:13 Urine Sperm Rare /HPF (NEGATIVE) 09/02/19 01:13 Ur Culture Indicated? No/not indicated 09/02/19 01:13 Influenza Type A (PCR) Negative (NEGATIVE) 09/03/19 20:08 Influenza Type B (PCR) Negative (NEGATIVE) 09/03/19 20:08 Tissue Pathology To follow 09/02/19 12:41 - Plan (1) Abdominal pain Status: Acute Qualifiers: Abdominal location: generalized Qualified Code(s): R10.84 - Generalized abdominal pain Plan: Continue hydration, IV Protonix and Gi cocktail. Dr. Taylor following. EGD done recently showed ulcers with esophagitis. HIDA concerning for chronic cholecystitis, plan for cholecystectomy. (2) Nausea & vomiting Status: Acute Qualifiers: Vomiting type: unspecified Vomiting Intractability: non-intractable Qu alified Code(s): R11.2 - Nausea with vomiting, unspecified (3) Facial flushing Status: Acute (4) Hypertension Status: Acute Qualifiers: Hypertension type: unspecified Qualified Code(s): I10 - Essential (primary) hypertension (5) Palpitations with regular cardiac rhythm Status: Acute
--- NOTE | 2019-09-05 22:24 | PCM.PROG ---
Progress Note - Progress Note for Day of Date of Exam: 09/04/19 - Subjective Subjective: WAS ADMITTED TO THE HOSPITAL FOR TREATMENT OF ABDOMINAL PAIN, NAUSEA, VOMITING, AND SHORTNESS OF BREATH. TODAY, HE IS ALERT AND ORIENTED, LYING IN BED ON MORNING ROUNDS. HE CONTINUES WITH COMPLAINTS OF ABDOMINAL PAIN AND NAUSEA. SYMPTOMS ARE WORSE AFTER EATING. ON EXAMINATION, HEART IS REGULAR IN RATE AND RHYTHM. BILATERAL LUNGS ARE NOTED WITH DIMINISHED LUNG SOUNDS THROUGHOUT. ABDOMEN IS ROUND, SOFT, AND NOTED WITH DIFFUSE TENDERNESS. NORMAL BOWEL SOUNDS ARE NOTED. HIS VITALS THIS MORNING ARE: 97.7-74-18-99%-116/70. LABS WERE OBTAINED. ABNORMAL LAB VALUES INCLUDE THE FOLLOWING: RBC 4.36, GLUCOSE 118, CALCIUM 8.0, TOTAL BILI 2.30, AST 14, TOTAL PROTEIN 6.2, ALBUMIN 3.1. A HIDA SCAN WAS OBTAINED YESTERDAY AND REVEALED: No evidence of acute cholecystitis but there is gallbladder dyskinesia which could be from chronic cholecystitis. WE WILL CONTINUE HIS CURRENT MEDICATIONS OF D51/2ST AT 150ML/HR, PEPCID 20MG IV BID PRN, PERCOCET 5/325MG PO Q4H PRN, PROTONIX IV, VISTARIL PRN, GI COCKTAIL, AND ZOFRAN PRN. PLANS FOR A POSSIBLE CHOLECYSTECTOMY. WE ARE IN AGREEMENT WITH PLANS. OTHERWISE, WE WILL FOLLOW UP WITH AM LABS AND CONTINUE TO MONITOR. - Past Medical Family Social History Past Med/Fam/Surg Hx: No changes since H&P Allergies: Allergies No Known Drug Allergies Allergy (Verified 09/01/19 22:24) - Review of Systems ROS: No change since H&P - Vital Signs and I&O's Vital Signs: Temperature 98.0 F Pulse Rate [Right Brachial] 79 Pulse Rate [Left Brachial] 68 Pulse Rate 99 Respiratory Rate 20 Blood Pressure [Right Arm] 133/88 Blood Pressure [Left Arm] 131/76 Blood Pressure 131/83 O2 Sat by Pulse Oximetry 97 Intake and Output: Intake & Output 09/03/19 09/04/19 09/05/19 09/06/19 11:59 11:59 11:59 11:59 Intake Total 2692 / 2692 2272 / 2272 4342 / 4342 192 / 192 Balance 2692 / 2692 2272 / 2272 4342 / 4342 1919 / 1919 - Physical Exam Oriented: Normal Eyes: Normal Ear: Normal Nose: Normal Throat: Normal Cardiovascular: Normal. negative: S3, S4, Murmur : Normal Auscultation: Bowel Sounds: Decreased Tenderness: Normal Skin: Normal Musculoskeletal: Normal Psychiatric: Normal Mood Description: Calm Affect: Normal Speech Pattern: Clear, Appropriate - Laboratory and Diagnostics Result Diagrams: 09/05/19 05:25 09/05/19 05:25 Labs: Laboratory WBC 5.4 X10^3/uL (3.6-10.0) 09/05/19 05:25 RBC 4.59 X10^6/uL (4.7-6.0) L 09/05/19 05:25 Hgb 14.8 g/dL (13.5-18.0) 09/05/19 05:25 Hct 41.2 % (42.0-54.0) L 09/05/19 05:25 MCV 89.8 fL (80.0-100.0) 09/05/19 05:25 MCH 32.2 pg (27.0-34.0) 09/05/19 05:25 MCHC 35.9 g/dL (33.0-35.0) H 09/05/19 05:25 RDW 12.6 % (11.6-16.5) 09/05/19 05:25 Plt Count 265 X10^3/uL (150.0-450.0) 09/05/19 05:25 MPV 7.4 fL (7.4-11.0) 09/05/19 05:25 Neut % (Auto) 63.4 % (42.0-75.0) 09/05/19 05:25 Lymph % (Auto) 25.4 % (21.0-51.0) 09/05/19 05:25 [place] % (Auto) 8.6 % (0.0-13.0) 09/05/19 05:25 Eos % (Auto) 1.7 % (0.9-2.9) 09/05/19 05:25 Baso % (Auto) 0.9 % (0.2-1.0) 09/05/19 05:25 Neut # (Auto) 3.5 x10^3/uL (2.2-4.8) 09/05/19 05:25 Lymph # (Auto) 1.4 X10^3/uL (1.3-2.9) 09/05/19 05:25 [place] # (Auto) 0.5 x10^3/uL (0.3-0.8) 09/05/19 05:25 Eos # (Auto) 0.1 x10^3/uL (0.0-0.2) 09/05/19 05:25 Baso # (Auto) 0.0 X10^3/uL (0.0-0.1) 09/05/19 05:25 Absolute Nucleated RBC 0.0 /100WBC 09/05/19 05:25 Sodium 139 mmol/L (136-145) 09/05/19 05:25 Corrected Sodium TNP 09/05/19 05:25 Potassium 4.2 mmol/L (3.5-5.1) 09/05/19 05:25 Chloride 105 mmol/L (98-107) 09/05/19 05:25 Carbon Dioxide 31.2 mmol/L (21-32) 09/05/19 05:25 BUN 9 mg/dL (7-18) 09/05/19 05:25 Creatinine 1.11 mg/dL (0.70-1.30) 09/05/19 05:25 Est GFR (MDRD) Af Amer > 60 (>60) 09/05/19 05:25 Est GFR (MDRD) Non-Af > 60 (>60) 09/05/19 05:25 Glucose 102 mg/dL (65-99) H 09/05/19 05:25 POC Glucose (mg/dL) 100 mg/dL (65-99) H 09/03/19 20:01 Calcium 8.3 mg/dL (8.5-10.1) L 09/05/19 05:25 Corrected Calcium 8.9 mg/dL (8.5-10.1) 09/05/19 05:25 Total Bilirubin 2.80 mg/dL (0.2-1.0) H 09/05/19 05:25 AST 15 Units/L (15-37) 09/05/19 05:25 ALT 34 Units/L (12-78) 09/05/19 05:25 Alkaline Phosphatase 58 Units/L (46-116) 09/05/19 05:25 Creatine Kinase 31 Units/L (39-308) L 09/03/19 21:18 CK-MB (CK-2) < 1.0 ng/mL (0-4.0) 09/03/19 21:18 CK/CKMB % Calc 3.2 % (<4) 09/03/19 21:18 Troponin I < 0.02 ng/mL (0-1.5) 09/03/19 21:18 Total Protein 6.5 g/dL (6.4-8.2) 09/05/19 05:25 Albumin 3.2 g/dL (3.4-5.0) L 09/05/19 05:25 Globulin 3.3 g/dL (2.5-4.5) 09/05/19 05:25 Albumin/Globulin Ratio 1.0 Ratio (1.1-2.1) L 09/05/19 05:25 Lipase 70 Units/L (73-393) L 09/01/19 22:36 Specimen Type Clean catch urine 09/02/19 01:13 Urine Color Yellow (YELLOW) 09/02/19 01:13 Urine Appearance Clear (CLEAR) 09/02/19 01:13 Urine pH 6.0 (5.0 - 8.0) 09/02/19 01:13 Ur Specific [place] 1.015 (1.000-1.030) 09/02/19 01:13 Urine Protein 1+ (NEGATIVE) 09/02/19 01:13 Urine Glucose (UA) 1+ (NEGATIVE) 09/02/19 01:13 Urine Ketones Negative (NEGATIVE) 09/02/19 01:13 Urine Occult Blood 2+ (NEGATIVE) 09/02/19 01:13 Urine Nitrite Negative (NEGATIVE) 09/02/19 01:13 Urine Bilirubin Negative (NEGATIVE) 09/02/19 01:13 Urine Urobilinogen Normal (NORMAL) 09/02/19 01:13 Ur Leukocyte Esterase Negative (NEGATIVE) 09/02/19 01:13 Urine RBC 0-2 /HPF (0-3) 09/02/19 01:13 Urine WBC None seen /HPF (0-5) 09/02/19 01:13 Ur Squamous Epith Cells Negative /HPF (NEGATIVE) 09/02/19 01:13 Urine Bacteria Negative /HPF (NEGATIVE) 09/02/19 01:13 Urine Sperm Rare /HPF (NEGATIVE) 09/02/19 01:13 Ur Culture Indicated? No/not indicated 09/02/19 01:13 Influenza Type A (PCR) Negative (NEGATIVE) 09/03/19 20:08 Influenza Type B (PCR) Negative (NEGATIVE) 09/03/19 20:08 Tissue Pathology To follow 09/02/19 12:41 - Plan (1) Abdominal pain Status: Acute Qualifiers: Abdominal location: generalized Qualified Code(s): R10.84 - Generalized abdominal pain Plan: Continue hydration, IV Protonix and Gi cocktail. Dr. Taylor following. EGD done recently showed ulcers with esophagitis. HIDA concerning for chronic cholecystitis, plan for cholecystectomy. (2) Nausea & vomiting Status: Acute Qualifiers: Vomiting type: unspecified Vomiting Intractability: non-intractable Qualified Code(s): R11.2 - Nausea with vomiting, unspecified (3) Facial flushing Status: Acute (4) Hypertension Status: Acute Qualifiers: Hypertension type: unspecified Qualified Code(s): I10 - Essential (primary) hypertension (5) Palpitations with regular cardiac rhythm Status: Acute
[2019-09-06] MEDS: D5 1/2 NS 1000 ML 1,000 ML IV SCH ×3 (01:24→15:29)
[2019-09-06] MEDS: TUCKS MEDICATED PAD TOP SCH ×5 (06:01→20:35)
[2019-09-06 06:16] LABS: BASOPHILS # (AUTO) 0.1 X10^3/uL (0.0-0.1); BASOPHILS % (AUTO) 0.7 % (0.2-1.0); EOSINOPHILS # (AUTO) 0.1 x10^3/uL (0.0-0.2); EOSINOPHILS % (AUTO) 1.6 % (0.9-2.9); HEMATOCRIT 40.4 % (42.0-54.0); HEMOGLOBIN 14.6 g/dL (13.5-18.0); LYMPHOCYTES # (AUTO) 1.3 X10^3/uL (1.3-2.9); LYMPHOCYTES % (AUTO) 17.1 % (21.0-51.0); MEAN CORPUSCULAR HEMOGLOBIN 31.6 pg (27.0-34.0); MEAN CORPUSCULAR VOLUME 87.7 fL (80.0-100.0); MEAN PLATELET VOLUME 7.4 fL (7.4-11.0); MONOCYTES # (AUTO) 0.6 x10^3/uL (0.3-0.8); MONOCYTES % (AUTO) 8.2 % (0.0-13.0); NEUTROPHILS # (AUTO) 5.5 x10^3/uL (2.2-4.8); NEUTROPHILS % (AUTO) 72.4 % (42.0-75.0); PLATELET COUNT 256 X10^3/uL (150.0-450.0); RED BLOOD COUNT 4.61 X10^6/uL (4.7-6.0); RED CELL DISTRIBUTION WIDTH 12.6 % (11.6-16.5); WHITE BLOOD COUNT 7.6 X10^3/uL (3.6-10.0)
[2019-09-06 06:23] LABS: ALANINE AMINOTRANSFERASE 33 Units/L (12-78); ALBUMIN 3.2 g/dL (3.4-5.0); ALKALINE PHOSPHATASE 59 Units/L (46-116); ASPARTATE AMINO TRANSFERASE 14 Units/L (15-37); BLOOD UREA NITROGEN 10 mg/dL (7-18); CALCIUM 8.1 mg/dL (8.5-10.1); CARBON DIOXIDE 26.8 mmol/L (21-32); CHLORIDE 104 mmol/L (98-107); COR CA(FOR HYPOALB) 8.7 mg/dL (8.5-10.1); COR NA(FOR HYPERGLY) 139 mmol/L (136-145); CREATININE 1.07 mg/dL (0.70-1.30); SODIUM 139 mmol/L (136-145); TOTAL PROTEIN 6.4 g/dL (6.4-8.2); eGFR NON BLACK RACES > 60 (>60)
[2019-09-06] MEDS ORDERED: LEXAPRO ONE (07:25)
[2019-09-06] MEDS: PROTONIX INJ 40 MG VIAL IVP SCH ×2 (08:40→20:33)
[2019-09-06] MEDS: EMLA CREAM TOP SCH ×2 (09:10→20:32)
[2019-09-06] MEDS: LEXAPRO PO SCH (09:11)
[2019-09-06] MEDS: LEVSIN/MAALOX/LIDOC VISC PO SCH ×4 (09:12→20:33)
[2019-09-06] MEDS ORDERED: FENTANYL INJ 250 mcg ONE (11:50)
[2019-09-06] MEDS ORDERED: LR 1000 ML IV 1,000 ML IV ONE (11:59)
[2019-09-06] MEDS ORDERED: DECADRON INJ ONE (12:37)
[2019-09-06] MEDS ORDERED: NEOSPORIN OINT ONE (12:57)
[2019-09-06] MEDS ORDERED: BENADRYL INJ 50 MG VIAL IVP PRN (13:15)
[2019-09-06] MEDS ORDERED: PHENERGAN INJ 25 MG IM PRN (13:15)
[2019-09-06] MEDS ORDERED: DILAUDID INJ IVP PRN (13:15)
[2019-09-06] MEDS ORDERED: REGLAN INJ 10 MG VIAL IVP PRN (13:15)
[2019-09-06] MEDS ORDERED: ZOFRAN INJ 4 MG VIAL IVP PRN (13:15)
[2019-09-06] MEDS ORDERED: ZOFRAN INJ 4 MG VIAL ONE (14:57)
[2019-09-06] MEDS ORDERED: ULTANE GAS IN ONE (14:57)
[2019-09-06] MEDS ORDERED: ROBINUL ONE (14:57)
[2019-09-06] MEDS ORDERED: VERSED ONE (14:57)
[2019-09-06] MEDS ORDERED: XYLOCAINE 2 % (PLAIN) ONE (14:57)
[2019-09-06] MEDS ORDERED: SUPRANE ONE (14:57)
[2019-09-06] MEDS ORDERED: TORADOL 30 MG VIAL ONE (14:57)
[2019-09-06] MEDS ORDERED: NEOSTIGMINE INJ ONE (14:57)
[2019-09-06] MEDS ORDERED: DIPRIVAN VIAL ONE (14:57)
[2019-09-06] MEDS ORDERED: QUELICIN (OR ANECTINE) ONE (14:57)
[2019-09-06] MEDS ORDERED: LTA KIT LIDOCAINE 4% ONE (14:57)
[2019-09-06] MEDS ORDERED: NS IRRIGATION 3000 ML ONE (15:37)
[2019-09-06] MEDS: COLACE CAP 100 MG PO SCH (20:31)
--- NOTE | 2019-09-06 22:07 | PCM.PROG ---
Progress Note - Progress Note for Day of Date of Exam: 09/06/19 - Subjective Subjective: WAS ADMITTED TO THE HOSPITAL FOR TREATMENT OF ABDOMINAL PAIN, NAUSEA, VOMITING, AND SHORTNESS OF BREATH. GALLBLADDER ULTRASOUND REVEALED SLUDGE AND HIDA SCAN REVEALED A GALLBLADDER EJECTION FRACTION OF 16%. TODAY, HE IS ALERT AND ORIENTED, LYING IN BED ON MORNING ROUNDS. HE CONTINUES WITH COMPLAINTS OF ABDOMINAL PAIN AND NAUSEA. ON EXAMINATION, HEART IS REGULAR IN RATE AND RHYTHM. BILATERAL LUNGS ARE NOTED WITH DIMINISHED LUNG SOUNDS THROUGHOUT. ABDOMEN IS ROUND, SOFT, AND NOTED WITH DIFFUSE TENDERNESS. NORMAL BOWEL SOUNDS ARE NOTED. HIS VITALS THIS MORNING ARE: 98.0-68-20-97%-110/59. LABS WERE OBTAINED. ABNORMAL LAB VALUES INCLUDE THE FOLLOWING: RBC 4.61, HCT 40.4, GLUCOSE 118, CALCIUM 8.1, TOTAL BILI 2.30, AST 14, ALBUMIN 3.2. PLANS FOR A LAPROSCOPIC CHOLECYSTECTOMY TODAY. WE ARE IN AGREEMENT WITH PLANS. WE WILL CONTINUE HIS CURRENT MEDICATIONS OF PEPCID 20MG IV BID PRN, PERCOCET 5/325MG PO Q4H PRN, PROTONIX IV, VISTARIL PRN, GI COCKTAIL, AND ZOFRAN PRN. OTHERWISE, WE WILL FOLLOW UP WITH AM LABS AND CONTINUE TO MONITOR. - Past Medical Family Social History Past Med/Fam/Surg Hx: No changes since H&P Allergies: Allergies No Known Drug Allergies Allergy (Verified 09/01/19 22:24) - Review of Systems ROS: No change since H&P - Vital Signs and I&O's Vital Signs: Temperature 97.4 F Pulse Rate [Right Brachial] 82 Pulse Rate [Left Brachial] 68 Pulse Rate 87 Respiratory Rate 20 Blood Pressure [Right Arm] 139/84 Blood Pressure [Left Arm] 131/76 Blood Pressure 148/79 O2 Sat by Pulse Oximetry 97 Intake and Output: Intake & Output 09/04/19 09/05/19 09/06/19 09/07/19 11:59 11:59 11:59 11:59 Intake Total 2272 / 2272 4342 / 4342 3860 / 3860 2720 / 2720 Output Total 700 / 700 Balance 2272 / 2272 4342 / 4342 3860 / 3860 2019 - Physical Exam Oriented: Normal Eyes: Normal Ear: Normal Nose: Normal Throat: Normal Cardiovascular: Normal. negative: S3, S4, Murmur : Normal Auscultation: Bowel Sounds: Decreased Tenderness: Normal Skin: Normal Musculoskeletal: Normal Psychiatric: Normal Mood Description: Calm Affect: Normal Speech Pattern: Clear, Appropriate - Laboratory and Diagnostics Result Diagrams: 09/06/19 05:14 09/06/19 05:14 Labs: Laboratory WBC 7.6 X10^3/uL (3.6-10.0) 09/06/19 05:14 RBC 4.61 X10^6/uL (4.7-6.0) L 09/06/19 05:14 Hgb 14.6 g/dL (13.5-18.0) 09/06/19 05:14 Hct 40.4 % (42.0-54.0) L 09/06/19 05:14 MCV 87.7 fL (80.0-100.0) 09/06/19 05:14 MCH 31.6 pg (27.0-34.0) 09/06/19 05:14 MCHC 36.0 g/dL (33.0-35.0) H 09/06/19 05:14 RDW 12.6 % (11.6-16.5) 09/06/19 05:14 Plt Count 256 X10^3/uL (150.0-450.0) 09/06/19 05:14 MPV 7.4 fL (7.4-11.0) 09/06/19 05:14 Neut % (Auto) 72.4 % (42.0-75.0) 09/06/19 05:14 Lymph % (Auto) 17.1 % (21.0-51.0) L 09/06/19 05:14 [place] % (Auto) 8.2 % (0.0-13.0) 09/06/19 05:14 Eos % (Auto) 1.6 % (0.9-2.9) 09/06/19 05:14 Baso % (Auto) 0.7 % (0.2-1.0) 09/06/19 05:14 Neut # (Auto) 5.5 x10^3/uL (2.2-4.8) H 09/06/19 05:14 Lymph # (Auto) 1.3 X10^3/uL (1.3-2.9) 09/06/19 05:14 [place] # (Auto) 0.6 x10^3/uL (0.3-0.8) 09/06/19 05:14 Eos # (Auto) 0.1 x10^3/uL (0.0-0.2) 09/06/19 05:14 Baso # (Auto) 0.1 X10^3/uL (0.0-0.1) 09/06/19 05:14 Absolute Nucleated RBC 0.1 /100WBC 09/06/19 05:14 Sodium 139 mmol/L (136-145) 09/06/19 05:14 Corrected Sodium 139 mmol/L (136-145) 09/06/19 05:14 Potassium 3.8 mmol/L (3.5-5.1) 09/06/19 05:14 Chloride 104 mmol/L (98-107) 09/06/19 05:14 Carbon Dioxide 26.8 mmol/L (21-32) 09/06/19 05:14 BUN 10 mg/dL (7-18) 09/06/19 05:14 Creatinine 1.07 mg/dL (0.70-1.30) 09/06/19 05:14 Est GFR (MDRD) Af Amer > 60 (>60) 09/06/19 05:14 Est GFR (MDRD) Non-Af > 60 (>60) 09/06/19 05:14 Glucose 118 mg/dL (65-99) H 09/06/19 05:14 POC Glucose (mg/dL) 100 mg/dL (65-99) H 09/03/19 20:01 Calcium 8.1 mg/dL (8.5-10.1) L 09/06/19 05:14 Corrected Calcium 8.7 mg/dL (8.5-10.1) 09/06/19 05:14 Total Bilirubin 2.30 mg/dL (0.2-1.0) H 09/06/19 05:14 AST 14 Units/L (15-37) L 09/06/19 05:14 ALT 33 Units/L (12-78) 09/06/19 05:14 Alkaline Phosphatase 59 Units/L (46-116) 09/06/19 05:14 Creatine Kinase 31 Units/L (39-308) L 09/03/19 21:18 CK-MB (CK-2) < 1.0 ng/mL (0-4.0) 09/03/19 21:18 CK/CKMB % Calc 3.2 % (<4) 09/03/19 21:18 Troponin I < 0.02 ng/mL (0-1.5) 09/03/19 21:18 Total Protein 6.4 g/dL (6.4-8.2) 09/06/19 05:14 Albumin 3.2 g/dL (3.4-5.0) L 09/06/19 05:14 Globulin 3.2 g/dL (2.5-4.5) 09/06/19 05:14 Albumin/Globulin Ratio 1.0 Ratio (1.1-2.1) L 09/06/19 05:14 Lipase 70 Units/L (73-393) L 09/01/19 22:36 Specimen Type Clean catch urine 09/02/19 01:13 Urine Color Yellow (YELLOW) 09/02/19 01:13 Urine Appearance Clear (CLEAR) 09/02/19 01:13 Urine pH 6.0 (5.0 - 8.0) 09/02/19 01:13 Ur Specific [place] 1.015 (1.000-1.030) 09/02/19 01:13 Urine Protein 1+ (NEGATIVE) 09/02/19 01:13 Urine Glucose (UA) 1+ (NEGATIVE) 09/02/19 01:13 Urine Ketones Negative (NEGATIVE) 09/02/19 01:13 Urine Occult Blood 2+ (NEGATIVE) 09/02/19 01:13 Urine Nitrite Negative (NEGATIVE) 09/02/19 01:13 Urine Bilirubin Negative (NEGATIVE) 09/02/19 01:13 Urine Urobilinogen Normal (NORMAL) 09/02/19 01:13 Ur Leukocyte Esterase Negative (NEGATIVE) 09/02/19 01:13 Urine RBC 0-2 /HPF (0-3) 09/02/19 01:13 Urine WBC None seen /HPF (0-5) 09/02/19 01:13 Ur Squamous Epith Cells Negative /HPF (NEGATIVE) 09/02/19 01:13 Urine Bacteria Negative /HPF (NEGATIVE) 09/02/19 01:13 Urine Sperm Rare /HPF (NEGATIVE) 09/02/19 01:13 Ur Culture Indicated? No/not indicated 09/02/19 01:13 Influenza Type A (PCR) Negative (NEGATIVE) 09/03/19 20:08 Influenza Type B (PCR) Negative (NEGATIVE) 09/03/19 20:08 Tissue Pathology To follow 09/06/19 12:51 - Plan (1) Abdominal pain Status: Acute Qualifiers: Abdominal location: generalized Qualified Code(s): R10.84 - Generalized abdominal pain Plan: Continue hydration, IV Protonix and Gi cocktail. Dr. Coe. EGD done recently showed ulcers with esophagitis. HIDA concerning for chronic cholecystitis, plan for cholecystectomy. (2) Nausea & vomiting Status: Acute Qualifiers: Vomiting type: unspecified Vomiting Intractability: non-intractable Qualified Code(s): R11.2 - Nausea with vomiting, unspecified (3) Facial flushing Status: Acute (4) Hypertension Status: Acute Qualifiers: Hypertension type: unspecified Qualified Code(s): I10 - Essential (primary) hypertension (5) Palpitations with regular cardiac rhythm Status: Acute
[2019-09-07] MEDS: TUCKS MEDICATED PAD TOP SCH ×2 (04:11→08:28)
[2019-09-07 06:44] LABS: ALANINE AMINOTRANSFERASE 31 Units/L (12-78); ALBUMIN 3.5 g/dL (3.4-5.0); ALKALINE PHOSPHATASE 65 Units/L (46-116); ASPARTATE AMINO TRANSFERASE 13 Units/L (15-37); BLOOD UREA NITROGEN 13 mg/dL (7-18); CALCIUM 8.8 mg/dL (8.5-10.1); CARBON DIOXIDE 30.5 mmol/L (21-32); CHLORIDE 102 mmol/L (98-107); CREATININE 1.11 mg/dL (0.70-1.30); SODIUM 139 mmol/L (136-145); TOTAL PROTEIN 6.8 g/dL (6.4-8.2); eGFR NON BLACK RACES > 60 (>60)
[2019-09-07 06:47] LABS: BASOPHILS % (AUTO) 0.3 % (0.2-1.0); EOSINOPHILS % (AUTO) 0.5 % (0.9-2.9); HEMATOCRIT 40.9 % (42.0-54.0); HEMOGLOBIN 14.8 g/dL (13.5-18.0); LYMPHOCYTES # (AUTO) 1.1 X10^3/uL (1.3-2.9); LYMPHOCYTES % (AUTO) 13.3 % (21.0-51.0); MEAN CORPUSCULAR HEMOGLOBIN 31.7 pg (27.0-34.0); MEAN CORPUSCULAR HGB CONC 36.3 g/dL (33.0-35.0); MEAN CORPUSCULAR VOLUME 87.5 fL (80.0-100.0); MEAN PLATELET VOLUME 7.4 fL (7.4-11.0); MONOCYTES # (AUTO) 0.6 x10^3/uL (0.3-0.8); MONOCYTES % (AUTO) 7.2 % (0.0-13.0); NEUTROPHILS # (AUTO) 6.2 x10^3/uL (2.2-4.8); NEUTROPHILS % (AUTO) 78.7 % (42.0-75.0); PLATELET COUNT 280 X10^3/uL (150.0-450.0); RED BLOOD COUNT 4.68 X10^6/uL (4.7-6.0); RED CELL DISTRIBUTION WIDTH 12.3 % (11.6-16.5); WHITE BLOOD COUNT 7.9 X10^3/uL (3.6-10.0)
[2019-09-07] MEDS ORDERED: LEXAPRO ONE (07:35)
[2019-09-07] MEDS: LEVSIN/MAALOX/LIDOC VISC PO SCH (08:19)
[2019-09-07] MEDS: LEXAPRO PO SCH (08:19)
[2019-09-07] MEDS: EMLA CREAM TOP SCH (08:28)
[2019-09-07] MEDS ORDERED: PROTONIX TAB 40 MG PO SCH (09:00)
[2019-09-07 12:19] VITALS: BP 138/78
== END 2019-09-07 12:05 | disposition home or self-care (01) ==
LOC: MED/SURG 21:21 → ER 21:21 → MED/SURG 09-02 03:46
PROVIDERS: ADMIT Internal Medicine; ATTEND Internal Medicine
DX: K29.60 Other gastritis without bleeding; I10 Essential (primary) hypertension; K82.8 Other specified diseases of gallbladder; R11.2 Nausea with vomiting, unspecified; R06.02 Shortness of breath; Z90.49 Acquired absence of other specified parts of digestive tract; R10.11 Right upper quadrant pain; R00.2 Palpitations; K21.9 Gastro-esophageal reflux disease without esophagitis; R10.84 Generalized abdominal pain
CPT/HCPCS: 36415; 71250; 74177; 76705; 78227; 80053; 81001; 82550; 82553; 83690; 84484; 85025; 87502; 93005; 96360; 96361; 96365; 96374; 96375; 99284; A4216; A4222; C9113; G0378; J0330; J1885; J2060; J2250; J2405; J2704; J2710; J3490; Q0177; S0028; S5010